=== PATIENT | female | born 1960 | race Caucasian/White ===

== ENCOUNTER 2018-04-16 10:53 | Emergency (ER) | payer SELFPAY ==
[~2018-04-16] VITALS: Ht 154.9 cm; Wt 66.9 kg
[2018-04-16 11:10] VITALS: BP 135/79
[2018-04-16] MEDS ORDERED: AMLO10TA2 PO (11:42)
[2018-04-16] MEDS ORDERED: HYDR25TA6 PO (11:42)
[2018-04-16] MEDS ORDERED: ATEN25TA PO (11:42)
[2018-04-16] MEDS ORDERED: ATOR10TA9 PO (11:42)
[2018-04-16] MEDS ORDERED: ASPI-515 PO (11:42)
[2018-04-16] MEDS ORDERED: FOLI-17 PO (11:42)
[2018-04-16] MEDS ORDERED: LIDOCAINE-MPF 2%, 2ML ONE (12:17)
[2018-04-16] MEDS ORDERED: LIDOCAINE 1%-EPI 1:100K, 20ML SQ ONE (12:30)
[2018-04-16] MEDS ORDERED: BACITRACIN ZINC OINT 500U/GM, 0.9 GM ONE (12:31)
== END 2018-04-16 13:48 | disposition home or self-care (01) ==
LOC: ED 13:10
DX: S01.01XA Laceration without foreign body of scalp, initial encounter (principal); F10.229 Alcohol dependence with intoxication, unspecified; F17.200 Nicotine dependence, unspecified, uncomplicated; I10 Essential (primary) hypertension; W01.0XXA Fall on same level from slipping, tripping and stumbling without subsequent striking against object, initial encounter; Y93.89 Activity, other specified; Y92.090 Kitchen in other non-institutional residence as the place of occurrence of the external cause; Y99.8 Other external cause status
CPT/HCPCS: 12032; 99284